=== PATIENT | female | born 1950 | race Caucasian/White ===

== ENCOUNTER 2017-05-19 09:03 | Outpatient (CLI) | payer MEDICARE ==
--- NOTE | 2017-05-19 14:20 | MRI ---
MRI BRAIN WITH AND WITHOUT IV CONTRAST: Date: 05/19/17 HISTORY: TIA, paresthesias of both hands, dizziness. FINDINGS: No evidence of infarct, hemorrhage, mass, midline shift, or abnormal extra-axial fluid collections ar e seen. The ventricular size is normal and the basilar cisterns are patent. No abnormal postcontrast enhancement is seen. No restricted diffusion is identified. There is a small amount of fluid in the m astoid air cells. IMPRESSION: No significant intracranial abnormalities are seen. POS: [facility]
--- NOTE | 2017-05-19 15:01 | ULT ---
EXAM: CAROTID ULTRASOUND: HISTORY: Transient alteration of awareness. COMPARISON: None. TECHNIQUE: Escudero scale, color flow, Doppler imaging, and spectral waveform analysis was performed in the carotid and vertebral arteries. FINDINGS: RIGHT CAROTID: There is a small focus of calcified and noncalcified plaque in the internal carotid artery. Peak sys tolic velocity of the common carotid artery is 72.2 cm/s. Peak systolic velocity of the internal car otid artery is 80.4 cm/s. Systolic ICA to CCA ratio is 1.1. LEFT CAROTID: There is a small focus of noncalcified plaque in the carotid bifurcation proximal internal carotid ar ramiro. Peak systolic velocity of the common carotid artery is 57 cm/s. Peak systolic velocity of the internal carotid artery is 65.2 cm/s The systolic ICA to CCA ratio is 1.1. Antegrade flow in both vertebral arteries. IMPRESSION: No sonographic evidence of hemodynamically significant stenosis. POS: [facility]
[2017-05-19] MEDS ORDERED: Gadobenate Dimeglumine 529 MG/1 ML (20ML VIAL) ONE (17:11)
== END 2017-05-19 09:04 | disposition home or self-care (01) ==
LOC: MRI 09:03
PROVIDERS: ATTEND Family Medicine
DX: R40.4 Transient alteration of awareness (principal); R20.0 Anesthesia of skin; I65.23 Occlusion and stenosis of bilateral carotid arteries
CPT/HCPCS: 70553; 93880; A9579

== ENCOUNTER 2017-08-01 10:23 | Outpatient (CLI) | payer MEDICARE | END 2017-08-01 10:24 | disposition home or self-care (01) | LOC: BICMAMMO 10:23 | PROVIDERS: ATTEND Family Medicine | DX: Z12.31 Encounter for screening mammogram for malignant neoplasm of breast (principal); Z80.3 Family history of malignant neoplasm of breast | CPT/HCPCS: 77063; 77067 ==

== ENCOUNTER 2017-12-26 13:49 | Outpatient (CLI) | payer MEDICARE ==
[~2017-12-26 13:49] MED LIST: Iopamidol 370 76% 100 ML VIAL ONE
== END 2017-12-26 13:50 | disposition home or self-care (01) ==
LOC: BICCT 13:49
PROVIDERS: ATTEND Internal Medicine Gastroenterology
DX: K57.32 Diverticulitis of large intestine without perforation or abscess without bleeding (principal)
CPT/HCPCS: 36415; 74177; 80053; 83690; 85025

== ENCOUNTER 2018-10-09 08:48 | Outpatient (CLI) | payer MEDICARE ==
--- NOTE | 2018-10-09 10:31 | CT ---
CT ABDOMEN AND PELVIS WITH AND WITHOUT IV CONTRAST: HISTORY: Microhematuria, UTI COMPARISON: 12/26/2017 FINDINGS: The lung bases are clear. A small hiatal hernia is present. The liver, spleen, pancreas and adrenal g lands are normal. There are postoperative changes of cholecystectomy. No free air, free fluid or lymphadenopathy seen in the abdomen or pelvis. There are vascular calcifications without evidence of aneurysmal dilatation of the abdominal aorta. No calculi noted in the kidneys, ureters or the urinary bladder. No hydroureteronephrosis is seen on either side. Postcontrast images demonstrate a tiny cyst in the inferior pole of the right kidney. No enhancing renal mass is seen. There is normal contrast excretion into the ureters and urinary blad kermit. The small bowel loops are not abnormally dilated. Sigmoid diverticulosis. A small intramuscular lipom a is noted in the right lateral abdominal wall musculature. Postop changes of laminectomy are again seen at L1 and L2 levels. Degenerative changes are present in the spine. Uterus is present. IMPRESSION: 1. No CT evidence of urinary tract calculi/obstruction or enhancing renal mass. 2. Small hiatal hernia 3. Sigmoid diverticulosis 4. Small intramuscular lipoma in the right lateral abdominal wall musculature.
[2018-10-09] MEDS ORDERED: ISOVUE-370 76%-LOCM 1 ML ONE (11:51)
== END 2018-10-09 08:49 | disposition home or self-care (01) ==
LOC: BICCT 08:48
PROVIDERS: ATTEND Urology
DX: R31.29 Other microscopic hematuria (principal); R35.0 Frequency of micturition; Z87.440 Personal history of urinary (tract) infections; K44.9 Diaphragmatic hernia without obstruction or gangrene; K57.30 Diverticulosis of large intestine without perforation or abscess without bleeding; D17.9 Benign lipomatous neoplasm, unspecified
CPT/HCPCS: 36415; 74178; 80048; 81001; 82565; 87086; 88112; Q9966

== ENCOUNTER 2019-04-26 11:56 | Outpatient (CLI) | payer MEDICARE ==
--- NOTE | 2019-04-26 16:17 | MMO ---
Bilateral MAMMO Bilat Screen [facility]. CLINICAL HISTORY: Patient is 68 years old and is seen for screening. The patient has the following family history of breast cancer: sister. The patient has no personal history of cancer. VIEWS: The views performed were: bilateral craniocaudal with tomosynthesis and bilateral mediolateral oblique with tomosynthesis. FILMS COMPARED: The present examination has been compared to prior imaging studies [place] [facility] [place], at [facility] on 11/30/2012 and 08/01/2017, and at [facility] on 06/30/2014. This study has been interpreted with the assistance of computer-aided detection. MAMMOGRAM FINDINGS: There are scattered fibroglandular densities. There is a focal asymmetry seen in the middle upper-outer region of the right breast located 7 centimeters from the nipple. In the left breast, there are no suspicious masses, calcifications or areas of architectural distortion. IMPRESSION: FOCAL ASYMMETRY IN THE RIGHT BREAST REQUIRES ADDITIONAL EVALUATION. ADDITIONAL PROJECTIONS ARE RECOMMENDED. AN ULTRASOUND EXAM IS RECOMMENDED IF NEEDED. SPOT MAGNIFICATION VIEW(S) ARE RECOMMENDED. ADDITIONAL IMAGING. THE RESULTS OF THIS EXAM WERE SENT TO THE PATIENT. ACR BI-RADS Category 0 - Incomplete: Need additional imaging evaluation. [facility] will notify the patient of the need for additional imaging services. MAMMOGRAPHY NOTE: 1. A negative mammogram report should not delay a biopsy if a dominant of clinically suspicious mass is present. 2. Approximately 10% to 15% of breast cancers are not detected by mammography. 3. Adenosis and dense breasts may obscure an underlying neoplasm. Reported by: ROBERTO JIMENEZ MD Electonically Signed: [id number]
== END 2019-04-26 11:57 | disposition home or self-care (01) ==
LOC: BICMAMMO 11:56
PROVIDERS: ATTEND Family Medicine
DX: Z12.31 Encounter for screening mammogram for malignant neoplasm of breast (principal); N64.89 Other specified disorders of breast; Z80.3 Family history of malignant neoplasm of breast
CPT/HCPCS: 77063; 77067

== ENCOUNTER 2019-05-04 13:19 | Outpatient (CLI) | payer MEDICARE ==
--- NOTE | 2019-05-04 13:59 | MMO ---
Right Breast MAMMO Unilat Diag [facility]. CLINICAL HISTORY: Patient is 68 years old and is seen for diagnostic exam. VIEWS: The views performed were: . FILMS COMPARED: The present examination has been compared to prior imaging studies performed at [facility] on 08/01/2017, 04/26/2019 and 05/04/2019, and at [facility] on 06/30/2014. This study has been interpreted with the assistance of computer-aided detection. MAMMOGRAM FINDINGS: There are scattered fibroglandular densities. There is an irregular mass measuring 7 millimeters with spiculated margins seen in the right breast at 11 o'clock. Ultrasound demonstrates an irregular hypoechoic mass in this location. IMPRESSION: MASS IN THE RIGHT BREAST IS SUSPICIOUS. AN ULTRASOUND-GUIDED BREAST BIOPSY IS RECOMMENDED. RESULTS AND RECOMMENDATIONS DISCUSSED WITH THE PATIENT AND QUESTIONS ANSWERED. THE RESULTS OF THIS EXAM WERE SENT TO THE PATIENT. ACR BI-RADS Category 4 - Suspicious abnormality - biopsy should be considered MAMMOGRAPHY NOTE: 1. A negative mammogram report should not delay a biopsy if a dominant of clinically suspicious mass is present. 2. Approximately 10% to 15% of breast cancers are not detected by mammography. 3. Adenosis and dense breasts may obscure an underlying neoplasm. Reported by: JANA KRISHNAN MD Electonically Signed: [id number]
--- NOTE | 2019-05-04 14:06 | ULT ---
LIMITED RIGHT BREAST ULTRASOUND: 05/04/2019 PROVIDED CLINICAL HISTORY: Abnormal mammogram. FINDINGS: Limited sonographic interrogation was performed of the right breast in the region of mammographic con cern. There is a hypoechoic, irregular mass measuring approximately 7 mm at the 11:30 position in the region of mammographic concern. IMPRESSION: BI-RADS category 4 - suspicious abnormality. Ultrasound guided biopsy is recommended. Results and rec ommendations discussed with the patient and questions answered. POS: OFF
--- NOTE | 2019-05-04 14:31 | MMO ---
Right Breast MAMMO Unilat Diag [facility]. CLINICAL HISTORY: Patient is 68 years old and is seen for diagnostic exam. The patient has the following family history of breast cancer: sister. The patient has no personal history of cancer. VIEWS: The views performed were: right craniocaudal and right mediolateral oblique. FILMS COMPARED: The present examination has been compared to prior imaging studies performed at [facility] on 08/01/2017, 04/26/2019 and 05/04/2019. This study has been interpreted with the assistance of computer-aided detection. MAMMOGRAM FINDINGS: There are scattered fibroglandular densities. There is a new biopsy clip seen in the right breast. IMPRESSION: NEW BIOPSY CLIP IN THE RIGHT BREAST IS CONFIRMED UTILIZING POST PROCEDURE MAMMOGRAM. THE RESULTS OF THIS EXAM WERE SENT TO THE PATIENT. MAMMOGRAPHY NOTE: 1. A negative mammogram report should not delay a biopsy if a dominant of clinically suspicious mass is present. 2. Approximately 10% to 15% of breast cancers are not detected by mammography. 3. Adenosis and dense breasts may obscure an underlying neoplasm. Reported by: JANA KRISHNAN MD Electonically Signed: [id number]
--- NOTE | 2019-05-04 14:55 | ULT ---
ULTRASOUND GUIDED RIGHT BREAST BIOPSY: 05/04/2019 PROVIDED CLINICAL HISTORY: Right breast mass. FINDINGS: Informed consent was obtained from the patient. The patient was placed on the sonographic table in th e supine position and the 11:30 right breast mass was localized sonographically. The skin overlying t his area was prepped and draped in the usual sterile manner. The soft tissues were infiltrate with 1% buffered Lidocaine. Continuous sonographic guidance was utilized to obtain four core samples of the mass. Continuous sonographic guidance was utilized to deploy a biopsy site marker adjacent to the mas s. Hudson were withdrawn and hemostasis achieved. No immediate complications. Post-biopsy mammograms demonstrate clip deployment slightly lateral to the mass. IMPRESSION: Technically successful ultrasound guided right breast biopsy. Please correlate with histology results to follow. POS: OFF
== END 2019-05-04 13:20 | disposition home or self-care (01) ==
LOC: BICMAMMO 13:19
PROVIDERS: ATTEND Family Medicine
DX: N63.11 Unspecified lump in the right breast, upper outer quadrant (principal); C50.411 Malignant neoplasm of upper-outer quadrant of right female breast; Z80.3 Family history of malignant neoplasm of breast
CPT/HCPCS: 19083; 76642; 77065; 88305; 88341; 88342; 88360; 88361; 88377; G0279

== ENCOUNTER 2019-05-21 07:35 | Day surgery (SDC) | payer MEDICARE ==
[2019-05-20 09:29] VITALS: BMI 34.7
--- NOTE | 2019-05-21 09:19 | NM ---
NUCLEAR MEDICINE LYMPHOSCINTIGRAPHY: HISTORY: Breast cancer. COMPARISON: Diagnostic mammograms from 05/04/2019. FINDINGS: The patient was brought to the nuclear medicine suite. All questions were answered. The patient's right breast was prepped in normal sterile fashion. A total of 4 aliquots 0.416 mCi brian hnetium 99m sulfur colloid was instilled in the periareolar region in four quadrants. There is uptake in the right axilla. IMPRESSION: Right axillary radiotracer uptake. Transcribed Date/Time: 05/21/2019 9:57 AM
[2019-05-21] MEDS ORDERED: Ketorolac Tromethamine 30 MG/ML VIAL ONE (09:46)
[2019-05-21] MEDS ORDERED: Ondansetron PF 4 MG/2 ML Vial ONE ×2 (10:05→16:15)
[2019-05-21] MEDS ORDERED: Lidocaine 1% PF 5 ML VIAL ONE (10:05)
[2019-05-21] MEDS ORDERED: PROPOFOL 200 MG/20 ML VIAL ONE (10:05)
[2019-05-21] MEDS ORDERED: Dexamethasone 20 MG/5 ML VIAL ONE (10:05)
--- NOTE | 2019-05-21 10:48 | RAD ---
XR Chest 1 View History: Preoperative breast surgery Comparison: None. Findings: Lungs are clear. No pneumothorax. No effusion. No acute osseous abnormality. Cardiac silhouette and mediastinal contours are within normal limits. Impression: No acute intrathoracic abnormality.
[2019-05-21 11:13] LABS: #Eosinphils 0.1 thou/uL (0.0-0.7); #Monocytes 0.6 thou/uL (0.11-0.59); #Neutrophils 2.8 thou/uL (1.40-6.50); %Basophils 0.2 % (0.0-1.0); %Eosinophils 1.1 % (0.0-10.0); %Lymphocytes 36.6 % (21.0-51.0); %Monocytes 10.7 % (0.0-10.0); %Neutrophils 51.4 % (42.0-75.0); Hemoglobin 14.6 g/dL (12.0-16.0); Mean Corpuscular HGB CONC 33.1 g/dL (32.0-36.0); Mean Corpuscular Hemoglobin 30.5 pg (27.0-31.0); Mean Platelet Volume 7.9 fL (7.4-10.4); Platelet Count 183 thou/uL (130-400); RBC Distribution Width 11.9 % (11.5-14.5); Red Blood Cell (RBC) Count 4.79 mill/uL (4.20-5.40); White Blood Cell (WBC) Count 5.5 thou/uL (4.8-10.8)
[2019-05-21 11:34] LABS: Anion Gap 14 mmol/L (10-20); BUN (Urea Nitrogen) 11 mg/dL (9.8-20.1); Calc. Creatinine Clearance 92 mL/min (70-130); Calcium 9.3 mg/dL (7.8-10.44); Carbon Dioxide 21 mmol/L (23-31); Chloride 109 mmol/L (98-107); Estimated GFR-MDRD 66; Glucose 88 mg/dL (80-115); Potassium 3.8 mmol/L (3.5-5.1); Sodium 140 mmol/L (136-145)
[2019-05-21] MEDS ORDERED: Bupivacaine PF 0.5% 30 ML VIAL ONE (11:40)
[2019-05-21] MEDS ORDERED: Lidocaine 1% w/Epinephrine 1:100K 20 ML VIAL ONE (11:40)
[2019-05-21] MEDS ORDERED: Isosulfan Blue 50 MG/5 ML VIAL ONE (11:40)
[2019-05-21] MEDS ORDERED: Fentanyl 100 MCG/2 ML VIAL ONE ×2 (13:59→14:48)
[2019-05-21] MEDS ORDERED: Midazolam HCl 2 mg/2 ml Vial ONE (13:59)
--- NOTE | 2019-05-21 15:35 | MMO ---
EXAM: MAMMO Surgical Specimen PROVIDED CLINICAL HISTORY: Excisional biopsy COMPARISON: None FINDINGS: Submitted mammographic specimen demonstrates a localization wire and biopsy clip. Findings communicat ed to the operating physician 3:32 PM 05/21/2019. IMPRESSION: As above.
--- NOTE | 2019-05-24 11:32 | OP ---
DATE OF PROCEDURE: 05/21/2019 PREOPERATIVE DIAGNOSIS: Right breast cancer. POSTOPERATIVE DIAGNOSIS: Right breast cancer. PROCEDURE PERFORMED: Ultrasound-guided right breast needle localization, needle-localized right breast lumpectomy, sentinel lymph node mapping, right axillary sentinel lymph node biopsy. ANESTHESIA: General endotracheal. INDICATIONS: The patient is a 68-year-old white female. 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 She is taken to the operating room at this time for ultrasound-guided needle-localized lumpectomy and sentinel lymph node biopsy. DESCRIPTION OF OPERATION: Lymphoscintigraphy was performed preoperatively identifying sentinel lymph nodes within the right axilla. She was taken to the operating room at that time, where general endotracheal anesthesia was obtained with the patient in supine position. The right breast was infiltrated with 3 mL of isosulfan blue in the periareolar subdermal tissue and the breast was massaged for 5 minutes. The right breast and axilla were then prepped with ChloraPrep and draped in sterile fashion. Attention was then turned to the axilla. A transverse low axillary incision was created and dissection was carried through skin and subcutaneous tissue, and the superficial axillary fascia. The Neoprobe was used to identify areas of maximum radio intensity. Using the Neoprobe, I was able to identify 2 blue-stained radioactive lymph nodes. These were each relatively inferior and deep compared to typical sentinel lymph nodes. These were dissected circumferentially and removed, ligated all investing lymphatics between clamps and 2-0 silk ties. Meticulous hemostasis was obtained with electrocautery. After these 2 lymph nodes were removed, there was no other area of any increased radioactivity within the axilla. Additional local anesthetic was infiltrated and the wound was closed in layers with 3-0 and 4-0 Monocryl. Attention was then turned to the breast. Ultrasound was utilized to identify the malignancy at the 11 o'clock radian about 5 cm from the nipple. Using ultrasound guidance, we marked the location of the cancer in a grid-like fashion on the skin. A localizing wire was then passed through the cancer using ultrasound guidance in a [id number] fashion. Additional local anesthetic was infiltrated, again using 0.25% Marcaine with epinephrine. A skin incision was created and dissection was carried through skin and subcutaneous tissue. Flaps were raised superiorly and inferiorly. Dissection was begun at the edge of the localizing wire carried deeply into the breast in order to have an appropriate margin posterior to the wire. I then dissected a wide core of tissue around the wire as it extended in a lateral fashion in the breast. The specimen of tissue was removed from the breast. It was tagged with sutures for orientation and submitted for specimen mammography. This showed that the lesion as well as the biopsy clip were removed uneventfully. Meticulous hemostasis was obtained within the wound with electrocautery. The wound was closed in layers with 3-0 and 4-0 Monocryl. Additional local anesthetic was infiltrated and Dermabond was placed externally. Dermabond was also placed on the axillary incision. There were no complications. Blood loss was negligible. The patient tolerated the procedure well and was taken to recovery room in stable condition. Job ID: [id number]
== END 2019-05-21 18:20 | disposition home or self-care (01) ==
LOC: SDC 07:35
PROVIDERS: ATTEND Specialist
PROC: 0HBT0ZZ Excision of Right Breast, Open Approach (ICD-10-PCS; principal; 2019-05-21)
PROC: 07B50ZX Excision of Right Axillary Lymphatic, Open Approach, Diagnostic (ICD-10-PCS; 2019-05-21)
DX: C50.411 Malignant neoplasm of upper-outer quadrant of right female breast (principal); E78.5 Hyperlipidemia, unspecified; E03.9 Hypothyroidism, unspecified; Z17.0 Estrogen receptor positive status [ER+]; Z79.899 Other long term (current) drug therapy; Z88.8 Allergy status to other drugs, medicaments and biological substances
CPT/HCPCS: 19301; 38525; 38900; 71045; 76098; 78195; 80048; 85025; 88307; 88342; 93005; A9541; Q9968; 36415; 93010; J0131; J0690; J1100; J1885; J2001; J2250; J2405; J2704; J3010; S0020

== ENCOUNTER 2020-02-20 07:39 | Emergency (ER) | payer MEDICARE ==
[2020-02-20] MEDS ORDERED: Bacitracin 1 PK ONE (08:42)
[2020-02-20] MEDS ORDERED: Ibuprofen 200 MG TAB ONE (09:14)
--- NOTE | 2020-02-20 09:53 | RAD ---
RIGHT FOOT 3 VIEWS: HISTORY: Pain following injury from a trip and fall. FINDINGS/IMPRESSION: No evidence for acute fracture, dislocation, or other significant acute osseous process. POS: OFF
--- NOTE | 2020-02-20 10:29 | RAD ---
RIGHT ANKLE 3 VIEWS: HISTORY: Pain following injury from a trip and fall. FINDINGS: There is some lateral soft tissue swelling of the lower leg and ankle. Possible very tiny bone densi ties off the lateral aspect of the talus possibly related to avulsion changes of the lateral collater al ligament complex. Tiny bone density adjacent to the anterior aspect of the talar head region, pos sibly either a tiny avulsion or more likely a small enthesophyte. IMPRESSION: Soft tissue swelling. Possible tiny avulsion fragments off the lateral talus. Evidence for some tib iotalar joint effusion. Consider followup nonemergent MRI study for further assessment, particularly if the patient has evide nt for ankle instability. POS: OFF
== END 2020-02-20 09:24 | disposition home or self-care (01) ==
LOC: ERS 07:39
DX: S93.401A Sprain of unspecified ligament of right ankle, initial encounter (principal); S93.601A Unspecified sprain of right foot, initial encounter; E03.9 Hypothyroidism, unspecified; E78.00 Pure hypercholesterolemia, unspecified; Z79.899 Other long term (current) drug therapy; W01.0XXA Fall on same level from slipping, tripping and stumbling without subsequent striking against object, initial encounter

== ENCOUNTER 2020-05-05 08:11 | Outpatient (CLI) | payer MEDICARE ==
--- NOTE | 2020-05-05 08:45 | MMO ---
Bilateral MAMMO Bilat Diag [facility]. CLINICAL HISTORY: Patient is 69 years old and is seen for diagnostic exam. The patient has the following family history of breast cancer: sister. The patient has a history of Excisional biopsy procedure revealed invasive well differentiated ductal right breast carcinoma in May,. The patient has a history of right Ultrasound Guided Core Biopsy in May, - malignant and right Lumpectomy in May, - malignant. VIEWS: The views performed were: bilateral craniocaudal with tomosynthesis; bilateral mediolateral oblique with tomosynthesis; and bilateral mediolateral with tomosynthesis. FILMS COMPARED: The present examination has been compared to prior imaging studies performed at [facility] on 04/26/2019 and 05/04/2019. This study has been interpreted with the assistance of computer-aided detection. MAMMOGRAM FINDINGS: There are scattered fibroglandular densities. There are new post operative changes seen in the right breast. There are no suspicious masses, suspicious calcifications, or suspicious areas of architectural distortion. IMPRESSION: THERE IS NO MAMMOGRAPHIC EVIDENCE OF MALIGNANCY. A ROUTINE FOLLOW-UP MAMMOGRAM IN 1 YEAR IS RECOMMENDED. THE RESULTS OF THIS EXAM WERE SENT TO THE PATIENT. ACR BI-RADS Category 2 - Benign finding MAMMOGRAPHY NOTE: 1. A negative mammogram report should not delay a biopsy if a dominant of clinically suspicious mass is present. 2. Approximately 10% to 15% of breast cancers are not detected by mammography. 3. Adenosis and dense breasts may obscure an underlying neoplasm. Reported by: JANA KRISHNAN MD Electonically Signed: [id number]
== END 2020-05-05 08:12 | disposition home or self-care (01) ==
LOC: BICMAMMO 08:11
PROVIDERS: ATTEND Internal Medicine Hematology & Oncology
DX: Z08 Encounter for follow-up examination after completed treatment for malignant neoplasm (principal); Z85.3 Personal history of malignant neoplasm of breast
CPT/HCPCS: 77066; G0279

== ENCOUNTER 2021-05-22 09:19 | Outpatient (CLI) | payer MEDICARE | END 2021-05-22 09:20 | disposition home or self-care (01) | LOC: BICMAMMO 09:19 | PROVIDERS: ATTEND Specialist | DX: C50.411 Malignant neoplasm of upper-outer quadrant of right female breast (principal) | CPT/HCPCS: 77066; G0279 ==

== ENCOUNTER 2022-03-14 04:52 | Emergency (ER) | payer MEDICARE ==
[2022-03-14 05:58] LABS: #Basophils 0.1 thou/uL (0.0-0.2); #Eosinphils 0.1 thou/uL (0.0-0.7); #Lymphocytes 1.3 thou/uL (1.20-3.40); #Monocytes 0.4 thou/uL (0.11-0.59); #Neutrophils 2.8 thou/uL (1.40-6.50); %Eosinophils 1.4 % (0.0-10.0); %Lymphocytes 27.5 % (21.0-51.0); %Monocytes 9.5 % (0.0-10.0); %Neutrophils 59.6 % (42.0-75.0); Hemoglobin 13.6 g/dL (12.0-16.0); Mean Corpuscular HGB CONC 33.7 g/dL (32.0-36.0); Mean Corpuscular Hemoglobin 30.6 pg (27.0-31.0); Mean Corpuscular Volume 90.7 fL (78.0-98.0); Mean Platelet Volume 7.2 fL (7.4-10.4); Platelet Count 202 thou/uL (130-400); RBC Distribution Width 11.6 % (11.5-14.5); Red Blood Cell (RBC) Count 4.43 mill/uL (4.20-5.40); White Blood Cell (WBC) Count 4.7 thou/uL (4.8-10.8)
[2022-03-14 06:17] LABS: ALT (SGPT) 22 U/L (8-55); AST (SGOT) 24 U/L (5-34); Albumin 4.3 g/dL (3.4-4.8); Alkaline Phosphatase 79 U/L (40-110); Anion Gap 15 mmol/L (10-20); BUN (Urea Nitrogen) 23 mg/dL (9.8-20.1); Bilirubin, Total 0.9 mg/dL (0.2-1.2); Calc. Creatinine Clearance 0 mL/min (70-130); Calcium 9.3 mg/dL (7.8-10.44); Carbon Dioxide 25 mmol/L (23-31); Chloride 104 mmol/L (98-107); Estimated GFR 48; Globulin 2.4 g/dL (2.4-3.5); Glucose 100 mg/dL (80-115); Lipase 34 U/L (8-78); Potassium 4.2 mmol/L (3.5-5.1); Protein, Total 6.7 g/dL (5.8-8.1); Sodium 140 mmol/L (136-145)
[2022-03-14] MEDS ORDERED: Iopamidol 370 76% 100 ML VIAL ONE (10:07)
== END 2022-03-14 08:20 | disposition home or self-care (01) ==
LOC: ERS 04:52
DX: R10.31 Right lower quadrant pain (principal); E03.9 Hypothyroidism, unspecified; E78.5 Hyperlipidemia, unspecified
CPT/HCPCS: 36415; 74177; 80053; 83605; 83690; 85025; Q9967

== ENCOUNTER 2022-08-30 09:19 | Outpatient (CLI) | payer MEDICARE | END 2022-08-30 09:20 | disposition home or self-care (01) | LOC: BICMAMMO 09:19 | PROVIDERS: ATTEND Internal Medicine Hematology & Oncology | DX: C50.411 Malignant neoplasm of upper-outer quadrant of right female breast (principal) | CPT/HCPCS: 77066; G0279 ==

== ENCOUNTER 2023-06-30 07:38 | Outpatient (CLI) | payer MEDICARE | END 2023-06-30 07:39 | disposition home or self-care (01) | LOC: BICMAMMO 07:38 | PROVIDERS: ATTEND Student in an Organized Health Care Education/Training Program | DX: Z13.820 Encounter for screening for osteoporosis (principal); Z78.0 Asymptomatic menopausal state; M85.89 Other specified disorders of bone density and structure, multiple sites; Z00.00 Encounter for general adult medical examination without abnormal findings; Z11.59 Encounter for screening for other viral diseases; R41.3 Other amnesia | CPT/HCPCS: 36415; 77080; 80061; 82607; 86780; 86803; 87389 ==

== ENCOUNTER 2024-03-08 12:35 | Outpatient (CLI) | payer MEDICARE | END 2024-03-08 12:36 | disposition home or self-care (01) | LOC: BICCT 12:35 | PROVIDERS: ATTEND Physician Assistant Medical | DX: R19.7 Diarrhea, unspecified (principal); R10.9 Unspecified abdominal pain; R11.0 Nausea; R63.4 Abnormal weight loss; K57.30 Diverticulosis of large intestine without perforation or abscess without bleeding; K57.32 Diverticulitis of large intestine without perforation or abscess without bleeding | CPT/HCPCS: 74177; 82565; Q9967 ==

== ENCOUNTER 2024-03-19 01:00 | Inpatient (IN) | payer MEDICARE ==
[2024-03-19 02:15] LABS: #Basophils 0.03 10x3/uL (0.0-0.2); %Basophils 0.6 % (0.0-1.0); %Eosinophils 1.3 % (0.0-10.0); %Lymphocytes 25.1 % (21.0-51.0); %Monocytes 8.4 % (0.0-10.0); %Neutrophils 63.9 % (42.0-75.0); Hematocrit 38.2 % (36.0-47.0); Hemoglobin 12.7 g/dL (12.0-16.0); Mean Corpuscular HGB CONC 33.2 g/dL (32.0-36.0); Mean Corpuscular Hemoglobin 29.8 pg (27.0-31.0); Mean Corpuscular Volume 89.7 fL (78.0-98.0); Mean Platelet Volume 8.9 fL (7.4-10.4); Platelet Count 209 10x3/uL (130-400); RBC Distribution Width 12.7 % (11.5-14.5); Red Blood Cell (RBC) Count 4.26 mill/uL (4.20-5.40)
[2024-03-19 02:39] LABS: ALT (SGPT) 18 U/L (8-55); AST (SGOT) 20 U/L (5-34); Albumin 3.5 g/dL (3.4-4.8); Alkaline Phosphatase 66 U/L (40-110); Anion Gap 13 mmol/L (10-20); BUN (Urea Nitrogen) 8 mg/dL (9.8-20.1); Bilirubin, Total 0.6 mg/dL (0.2-1.2); Calc. Creatinine Clearance 0 mL/min (70-130); Calcium 9.1 mg/dL (7.8-10.44); Carbon Dioxide 27 mmol/L (23-31); Chloride 106 mmol/L (98-107); Estimated GFR 62; Globulin 2.6 g/dL (2.4-3.5); Glucose 106 mg/dL (83-110); Potassium 3.7 mmol/L (3.5-5.1); Protein, Total 6.1 g/dL (5.8-8.1); Sodium 142 mmol/L (136-145)
[2024-03-19 02:42] LABS: Troponin I Less than 0.010 ng/mL (< 0.028)
[2024-03-19 05:31] VITALS: BMI 31.0
[2024-03-19] MEDS: Sodium Chloride 0.9% 1,000 ML IV SCH ×2 (05:55→16:12)
[2024-03-19] MEDS: cefTRIAXone\\ROCEPHIN 1 GM in Sodium Chloride 0.9% 100 ML IVPB SCH (05:55)
[2024-03-19] MEDS: metroNIDAZOLE 500 MG in Premix 1 BAG IVPB SCH (06:41)
[2024-03-19] MEDS: Heparin 5,000 UNITS/ML VIAL SC SCH (09:07)
[2024-03-19] MEDS: Ondansetron PF 4 MG/2 ML Vial IVP PRN (09:07)
[2024-03-19] MEDS ORDERED: Iopamidol 370 76% 100 ML VIAL ONE (11:28)
[2024-03-19] MEDS: Loperamide HCl 2 MG CAP PO PRN (13:07)
[2024-03-19 17:30] VITALS: BMI 31.0
[2024-03-19] MEDS: Acetaminophen 325 MG TAB PO PRN (18:51)
[2024-03-19] MEDS: Atorvastatin Calcium 20 MG TAB PO SCH (20:16)
[2024-03-20] MEDS: Sodium Chloride 0.9% 1,000 ML IV SCH (01:03)
[2024-03-20 04:17] LABS: #Basophils 0.03 10x3/uL (0.0-0.2); %Basophils 0.8 % (0.0-1.0); %Eosinophils 3.4 % (0.0-10.0); %Lymphocytes 43.6 % (21.0-51.0); %Neutrophils 39.9 % (42.0-75.0); Hematocrit 35.6 % (36.0-47.0); Mean Corpuscular HGB CONC 33.7 g/dL (32.0-36.0); Mean Corpuscular Hemoglobin 29.7 pg (27.0-31.0); Mean Corpuscular Volume 88.1 fL (78.0-98.0); Mean Platelet Volume 9.3 fL (7.4-10.4); Platelet Count 188 10x3/uL (130-400); RBC Distribution Width 12.9 % (11.5-14.5); Red Blood Cell (RBC) Count 4.04 mill/uL (4.20-5.40)
[2024-03-20 04:48] LABS: Anion Gap 11 mmol/L (10-20); BUN (Urea Nitrogen) 7 mg/dL (9.8-20.1); Calc. Creatinine Clearance 72 mL/min (70-130); Calcium 8.3 mg/dL (7.8-10.44); Carbon Dioxide 24 mmol/L (23-31); Chloride 109 mmol/L (98-107); Estimated GFR 67; Glucose 103 mg/dL (83-110); Potassium 3.5 mmol/L (3.5-5.1); Sodium 140 mmol/L (136-145)
[2024-03-20] MEDS: Pantoprazole DR 40 MG TAB PO SCH (08:59)
[2024-03-20] MEDS: BuPROPion XL 150 MG ER.TAB PO SCH (08:59)
[2024-03-20] MEDS: GoLYTELY 4,000 ml Bottle PO SCH (16:19)
[2024-03-21] MEDS ORDERED: Ondansetron PF 4 MG/2 ML Vial ONE ×2 (08:47→10:27)
[2024-03-21] MEDS ORDERED: PROPOFOL 20 ML ONE ×2 (09:14→10:27)
[2024-03-21] MEDS ORDERED: Lidocaine 1% PF 5 ML VIAL ONE (10:27)
[2024-03-21] MEDS ORDERED: Dexamethasone 20 MG/5 ML VIAL ONE (10:27)
[2024-03-21] MEDS ORDERED: fentaNYL 50 mcg/mL 1 mL Vial ONE (10:52)
[2024-03-21] MEDS ORDERED: PHENYLEPHRINE-NS 100 MCG/ML 10 ML SYRINGE ONE (11:38)
[2024-03-21] MEDS: Sodium Chloride 0.9% 1,000 ML IV SCH (14:00)
[2024-03-21] MEDS: Lactated Ringer's 1,000 ML IV SCH (16:58)
[2024-03-21] MEDS: Promethazine HCl 25 MG in Sodium Chloride 0.9% 50 ML IVPB SCH (17:54)
[2024-03-22] MEDS ORDERED: Fludrocortisone Acetate 0.1 MG TAB PO SCH (10:18)
[2024-03-22] MEDS ORDERED: Meclizine HCl 12.5 MG TAB PO PRN (10:31)
[2024-03-22] MEDS ORDERED: Promethazine HCl 12.5 MG in Sodium Chloride 0.9% 50 ML IVPB PRN (10:32)
[2024-03-22] MEDS: Meclizine HCl 12.5 MG TAB PO SCH ×2 (10:55→20:57)
[2024-03-22] MEDS: Fludrocortisone Acetate 0.1 MG TAB PO SCH ×2 (10:55)
[2024-03-22] MEDS: Lactated Ringer's 1,000 ML IV SCH (10:56)
[2024-03-23 04:44] LABS: #Basophils 0.07 10x3/uL (0.0-0.2); %Basophils 1.5 % (0.0-1.0); %Eosinophils 2.2 % (0.0-10.0); %Lymphocytes 35.2 % (21.0-51.0); %Monocytes 10.3 % (0.0-10.0); %Neutrophils 47.3 % (42.0-75.0); Hematocrit 35.6 % (36.0-47.0); Hemoglobin 12.1 g/dL (12.0-16.0); Mean Corpuscular Hemoglobin 29.7 pg (27.0-31.0); Mean Corpuscular Volume 87.3 fL (78.0-98.0); Mean Platelet Volume 9.5 fL (7.4-10.4); Platelet Count 208 10x3/uL (130-400); RBC Distribution Width 13.1 % (11.5-14.5); Red Blood Cell (RBC) Count 4.08 mill/uL (4.20-5.40)
[2024-03-23 05:19] LABS: Anion Gap 12 mmol/L (10-20); BUN (Urea Nitrogen) 4 mg/dL (9.8-20.1); Calc. Creatinine Clearance 80 mL/min (70-130); Calcium 8.1 mg/dL (7.8-10.44); Carbon Dioxide 26 mmol/L (23-31); Chloride 107 mmol/L (98-107); Estimated GFR 74; Glucose 99 mg/dL (83-110); Magnesium 1.6 mg/dL (1.6-2.6); Potassium 3.4 mmol/L (3.5-5.1); Sodium 142 mmol/L (136-145)
[2024-03-23] MEDS ORDERED: Electrolyte Replacement Protocol FS PRN (08:30)
[2024-03-23] MEDS: Potassium Chloride 20 MEQ TAB PO SCH (09:22)
[2024-03-23] MEDS: Magnesium 2 GM/50 ML(in water) 2 GM in Premix 1 BAG IVPB SCH (09:23)
[2024-03-23] MEDS: Electrolyte Replacement Protocol 1 EACH FS ONE (09:43)
[2024-03-23] MEDS: FLU (Fluad Triv) TS24-25 (65UP)/MF59C/PF 45 MCG/0.5 ML Syringe IM ONE (09:51)
[2024-03-23 12:05] VITALS: BP 159/76; TEMP 98.2
[2024-03-23 16:12] LABS: Adenovirus F 40-41 Not Detected (Not Detected); Astrovirus Not Detected (Not Detected); C. difficile toxin A+B Not Detected (Not Detected); Campylobacter by PCR Not Detected (Not Detected); Cryptosporidium Not Detected (Not Detected); Cyclospora cayetanensis Not Detected (Not Detected); Entamoeba histolytica Not Detected (Not Detected); Enteroaggregative E. coli Not Detected (Not Detected); Enteropathogenic E. coli Not Detected (Not Detected); Enterotoxigenic E. coli Not Detected (Not Detected); Giardia lamblia Not Detected (Not Detected); Norovirus GI-GII Not Detected (Not Detected); Plesiomonas shigelloides Not Detected (Not Detected); Rotavirus A Not Detected (Not Detected); Salmonella Not Detected (Not Detected); Sapovirus Not Detected (Not Detected); Shiga-toxin-producing E coli Not Detected (Not Detected); Shigella/Enteroinvasive E coli Not Detected (Not Detected); Vibrio Not Detected (Not Detected); Vibrio cholerae Not Detected (Not Detected); Yersinia enterocolitica Not Detected (Not Detected)
== END 2024-03-23 12:25 | disposition home or self-care (01) | DRG 312 ==
LOC: ERS 01:00 → OBS 04:28 → OBSVTOIN 03-21 10:20
PROVIDERS: ADMIT Internal Medicine; ATTEND Internal Medicine
PROC: 0DB98ZX Excision of Duodenum, Via Natural or Artificial Opening Endoscopic, Diagnostic (ICD-10-PCS; principal; 2024-03-21)
PROC: 0DBK8ZZ Excision of Ascending Colon, Via Natural or Artificial Opening Endoscopic (ICD-10-PCS; 2024-03-21)
PROC: 0DBG8ZX Excision of Left Large Intestine, Via Natural or Artificial Opening Endoscopic, Diagnostic (ICD-10-PCS; 2024-03-21)
PROC: 0DBF8ZX Excision of Right Large Intestine, Via Natural or Artificial Opening Endoscopic, Diagnostic (ICD-10-PCS; 2024-03-21)
DX: I95.1 Orthostatic hypotension (principal); K57.32 Diverticulitis of large intestine without perforation or abscess without bleeding; E03.9 Hypothyroidism, unspecified; E78.5 Hyperlipidemia, unspecified; Z90.49 Acquired absence of other specified parts of digestive tract; Z88.8 Allergy status to other drugs, medicaments and biological substances; Z79.890 Hormone replacement therapy; K52.9 Noninfective gastroenteritis and colitis, unspecified; K44.9 Diaphragmatic hernia without obstruction or gangrene
CPT/HCPCS: 36415; 70450; 70551; 71045; 74177; 80048; 80053; 83605; 83630; 83735; 83880; 84145; 84443; 84484; 85025; 87324; 87449; 87507; 88305; 93005; 93306; 93880; 96365; 96367; 96372; 96375; 96376; G0378; J0696; J1100; J1644; J2405; J2550; J2704; J3010; J3475; Q9967